=== PATIENT | male | born 1960 | race Hispanic/Latino ===

== ENCOUNTER 2024-07-10 02:03 | Emergency (ER) | payer OTHER ==
[2024-07-10] MEDS ORDERED: traMADol HCl 50 MG TAB ONE (03:51)
== END 2024-07-10 03:55 ==
LOC: NAV ERS 02:03 → EEVIPCON 02:03 → NAV ERS 03:55
DX: S83.92XA Sprain of unspecified site of left knee, initial encounter (principal); I11.0 Hypertensive heart disease with heart failure; I50.9 Heart failure, unspecified; Z79.82 Long term (current) use of aspirin; W19.XXXA Unspecified fall, initial encounter
CPT/HCPCS: 99283